=== PATIENT | female | born 1960 | race Caucasian/White ===

== ENCOUNTER 2020-01-22 05:36 | Emergency (ER) | payer MEDICARE, MEDICAID ==
[~2020-01-22] VITALS: Ht 157.5 cm; Wt 52.5 kg
[~2020-01-22 05:36] MED LIST: CEFD300C37 PO
[2020-01-22 05:39] VITALS: BP 163/111
--- NOTE | 2020-01-22 05:43 | NUR ---
EKG DONE IN TRIAGE
--- NOTE | 2020-01-22 06:50 | NUR ---
RECEVIED REPORT FROM MARILEE TOLEDO. PT SITTING IN BED ON PHONE. O2 SAT READING 98%. PT STATES SHE'S HOT AND ANXIOUS. PROVIDED PT WITH PILLOW, COOL WASH CLOTH FOR NECK AND CALL LIGHT. PT UPDATED ON POC. WILL CONTINUE TO MONITOR.
== END 2020-01-22 07:19 | disposition home or self-care (01) ==
LOC: ED 07:08
DX: K08.89 Other specified disorders of teeth and supporting structures (principal); R05 Cough; R06.02 Shortness of breath; R94.31 Abnormal electrocardiogram [ECG] [EKG]
CPT/HCPCS: 71045; 93005; 99283

== ENCOUNTER 2020-02-23 12:00 | Emergency (ER) | payer BC, MEDICAID, MEDICARE ==
[~2020-02-23] VITALS: Ht 157.5 cm; Wt 56.5 kg
[2020-02-23 12:02] VITALS: BP 133/93
--- NOTE | 2020-02-23 12:13 | NUR ---
FIRST CONTACT WITH PT. PT C/O BURNING WITH URINATION, URINARY FREQUENCY AND LOW BACK PAIN. SYPTOMS STARTED 2 DAYS AGO. PT'S AOX4. RESPS EVEN AND UNLABORED.
--- NOTE | 2020-02-23 12:15 | NUR ---
TASK RN NOTE: PT AMBULATES WELL INDEPENDENTLY TO BATHROOM FOR UA SAMPLE. AWAITING RETURN. NAD NOTED AT THIS TIME.
[2020-02-23 13:03] LABS: BASOPHILS # (AUTO) 0.05 x10^3/uL (0-0.1); BASOPHILS % (AUTO) 1 % (0-1); EOSINOPHILS # (AUTO) 0.03 x10^3/uL (0-0.4); EOSINOPHILS % (AUTO) 0 % (1-7); LYMPHOCYTES # (AUTO) 1.59 x10^3/uL (1-3.4); LYMPHOCYTES % (AUTO) 17 % (22-44); MD NO; MEAN CORPUSCULAR HEMOGLOBIN 27.6 pg (27.0-34.8); MEAN CORPUSCULAR HGB CONC 31.9 g/dL (32.4-35.8); MEAN CORPUSCULAR VOLUME 86.4 fL (80-100); MEAN PLATELET VOLUME 7.2 fL (7.4-10.4); MONOCYTES % (AUTO) 4 % (2-9); NEUTROPHILS # (AUTO) 7.24 x10^3/uL (1.8-6.8); NEUTROPHILS % (AUTO) 78 % (42-75); PLATELET COUNT 389 x10^3/uL (130-400); RED BLOOD COUNT 4.95 x10^6/uL (3.82-5.3); RED CELL DISTRIBUTION WIDTH 15.4 % (9.6-15.2)
[2020-02-23 13:13] LABS: MICROSCOPIC INDICATED
[2020-02-23 13:15] LABS: ANION GAP 6 mmol/L (5-15); CALCIUM 8.9 mg/dL (8.5-10.1); CHLORIDE 108 mmol/L (98-107); CREATININE 0.87 mg/dL (0.55-1.02)
[2020-02-23] MEDS ORDERED: CEFTRIAXONE 1,000 MG ONE (13:43)
[2020-02-23] MEDS ORDERED: KETOROLAC 30 MG/1 ML ONE (13:51)
--- NOTE | 2020-02-23 13:53 | NUR ---
PT REFUSED PAIN MED AT THIS TIME. PT MEDICATED PER EMAR. PT TOLERATED WELL.
[2020-02-23] MEDS ORDERED: KETOROLAC 30 MG/1 ML IM ONE (14:00)
[2020-02-23] MEDS ORDERED: CEFTRIAXONE 1,000 MG IM ONE (14:00)
--- NOTE | 2020-02-23 14:08 | NUR ---
Patient given discharge instructions and they have confirmed that they understand the instructions. Patient ambulatory with steady gait.
== END 2020-02-23 14:12 | disposition home or self-care (01) ==
LOC: ED 13:35
DX: N30.01 Acute cystitis with hematuria (principal); R10.84 Generalized abdominal pain
CPT/HCPCS: 36415; 80048; 81001; 85025; 87077; 87086; 96372; 99283; J0696; 87186

== ENCOUNTER 2021-02-09 10:45 | Day surgery (SDC) | payer MEDICARE, MEDICAID ==
[~2021-02-09] VITALS: Ht 154.9 cm; Wt 60.0 kg
[2021-02-09] MEDS ORDERED: FURO20TA3 PO (12:49)
[2021-02-09] MEDS ORDERED: SPIR25TA5 PO (12:49)
[2021-02-09] MEDS ORDERED: DILT60CA PO (12:49)
[2021-02-09] MEDS ORDERED: DIPHENHYDRAMINE 50 MG/ML, 1ML IVPush ONE (13:00)
[2021-02-09] MEDS ORDERED: DIPHENHYDRAMINE 50 MG/ML, 1ML ONE (13:18)
[2021-02-09 13:32] LABS: BASOPHILS % (AUTO) 1 % (0-1); EOSINOPHILS % (AUTO) 1 % (1-7); LYMPHOCYTES % (AUTO) 33 % (22-44); MEAN PLATELET VOLUME 6.4 fL (7.4-10.4); MONOCYTES % (AUTO) 6 % (2-9); NEUTROPHILS % (AUTO) 59 % (42-75); PLATELET COUNT 439 x10^3/uL (130-400); RED BLOOD COUNT 4.54 x10^6/uL (3.82-5.3); RED CELL DISTRIBUTION WIDTH 13.4 % (9.6-15.2)
[2021-02-09] MEDS ORDERED: MIDAZOLAM 1 MG/ML, 2ML ONE (13:33)
[2021-02-09] MEDS ORDERED: HEPARIN 1,000 UNITS/ML, 10ML ONE (13:33)
[2021-02-09] MEDS ORDERED: VERAPAMIL 2.5 MG/ML, 2ML ONE (13:33)
[2021-02-09] MEDS ORDERED: LIDOCAINE 1%, 20ML ONE (13:33)
[2021-02-09] MEDS ORDERED: FENTANYL PF 100 MCG/2ML ONE (13:33)
[2021-02-09 13:39] LABS: ANION GAP 6 mmol/L (5-15); CALCIUM 8.4 mg/dL (8.5-10.1); CHLORIDE 105 mmol/L (98-107); INTERNATIONAL NORMALIZED RATIO 0.98 (0.93-1.1); PROTHROMBIN TIME 10.5 Seconds (9.6-11.5)
[2021-02-09 13:45] LABS: CREATININE 0.75 mg/dL (0.55-1.02)
[2021-02-09] MEDS ORDERED: SODIUM CHLORIDE 0.9% 1,000 ML IV SCH (15:00)
[2021-02-09] MEDS ORDERED: ACETAMINOPHEN 325 MG TABLET ONE (15:55)
[2021-02-09] MEDS ORDERED: ACETAMINOPHEN 325 MG TABLET PO ONE (16:30)
== END 2021-02-09 16:30 | disposition home or self-care (01) ==
LOC: CACL 10:45
PROVIDERS: ATTEND Internal Medicine Cardiovascular Disease
DX: R06.02 Shortness of breath (principal); F41.9 Anxiety disorder, unspecified; F32.9 Major depressive disorder, single episode, unspecified; G43.809 Other migraine, not intractable, without status migrainosus; Z72.89 Other problems related to lifestyle; Z79.899 Other long term (current) drug therapy
CPT/HCPCS: 36415; 80048; 82803; 83880; 85025; 85610; 85730; 93460; 99156; 99157; C1769; C1894; J1200; J1644; J2250; J3010; Q9967